=== PATIENT | female | born 1995 | race Caucasian/White ===

== ENCOUNTER 2024-12-16 10:10 | Emergency (ER) | payer BC, SELFPAY ==
[2024-12-16 10:10] VITALS: BP 122/76; BMI 27.2
[2024-12-16 10:11] VITALS: BP 122/76
[2024-12-16] MEDS: PEPCID 20 MG IV (10:23)
[2024-12-16] MEDS: DECADRON 4 MG IV (10:23)
[2024-12-16] MEDS: NSS 1000 IV (10:23)
[2024-12-16 10:56] LABS: ALT (SGPT) 26 U/L (0-35); AST (SGOT) 20 U/L (14-36); Albumin 4.6 g/dl (3.5-5.0); Alkaline Phosphatase 93 U/L (38-126); Blood Urea Nitrogen 13 mg/dl (7-17); Calcium 9.5 mg/dl (8.4-10.2); Carbon Dioxide 23 mmol/L (22-30); Chloride 104 mmol/L (98-107); Estimated Creatinine Clearance 107 ml/min; Glucose 143 mg/dl (70-99); Potassium 3.2 mmol/L (3.5-5.1); Sodium 138 mmol/L (135-145); Total Protein 7.0 g/dl (6.3-8.2); eGFR > 60.00
--- NOTE | 2024-12-16 11:04 | ED.GENMED ---
History of Present Illness
General
Chief Complaint: Allergic Reaction
Source: patient
Exam Limitations: none
Time Seen by Provider: 12/16/24 10:14
Nursing documentation reviewed up to this point in time: agreed with
History of Present Illness
History of Present Illness:
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 She noted that her symptoms commenced with intense
itchiness on her wrists, which progressed to include raised hives across her legs and around her eyes and upper lip. The patient experienced throat tightening, significant discomfort and was concerned about potential loss of consciousness as she was
alone at home, prompting her to call emergency services. The initial symptoms of itching and nausea, throat tightness, EMS administered epinephrine and diphenhydramine 50 mg from EMS. At evaluation, she reports feeling jittery from the epinephrine
and continuing itchiness, but her breathing and throat tightness has improved.
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
Past History
Past History
ED Past Medical History: Asthma and Psychiatric (depression w/ suicide attempt 10/27)
ED Past Surgical History: None
Social History
Tobacco: Smoker
Alcohol: None
Drug: None
Personal: Single
Living: with family
Family History
Family History: Other (n/c)
Review of Systems
Review of Systems
Allergies reviewed?: Yes
All Other Systems: ROS reviewed and negative except as documented in HPI and ROS
Constitutional: Denies fever
EENT: Denies sore throat or mouth swelling
Respiratory: Denies trouble breathing
Cardiac: Denies chest pain
ABD/GI: Denies abdominal pain, nausea, vomiting or diarrhea
Musculoskeletal: Reports no symptoms
Skin: Reports itching (Much improved, welts are gone)
Neurological: Reports no symptoms
Phy Exam
Physical Exam
Physical Exam:
GENERAL: No acute distress. A&Ox3.
CONSTITUTIONAL: Afebrile.
EYES: clear, conjunctivae normal
ENMT: moist mucus membranes, Pharynx nl
RESPIRATORY: Regular respirations, nonlabored, lungs clear.
CARDIOVASCULAR: Regular rate and rhythm, no murmurs, no rubs.
GI: Soft, nontender, normal BS
MUSCULOSKELETAL: Moves with ease. Well perfused.
SKIN: Warm, dry, pink, no rash.
PSYCH: Normal mood and affect. Well kept, interactive and appropriate
NEUROLOGIC: Awake, alert and oriented. No focal neurological deficits
Course
Orders/Labs/Results
Orders:
Orders
12/16/24 10:12
EKG [Electrocardiogram (*1)] Urgent
Reason for Study: Shortness of Breath
EKG- Treatment ONCE
CR Chest - 2 Views Urgent
Comment:
Reason For Exam: shortness of breath
12/16/24 10:19
0.9% Sodium Chloride 1000 ml [Nss] 1,000 ml IV BOLUS
Dexamethasone Sod Phosphate [Decadron] 4 mg IV NOW STA
Famotidine [Pepcid] 20 mg IV NOW STA
12/16/24 10:20
Complete Blood Count/With Diff Urgent
Comprehensive Metabolic Panel Urgent
12/16/24 11:23
Cetirizine HCl [Zyrtec] 10 mg PO NOW STA
Abnormal Lab Results
12/16/24
10:20
WBC 16.3 H 10^3/uL
(4.8-10.8)
MCH 31.8 H pg
(27.0-31.0)
Plt Count 401 H 10^3/uL
(130-400)
Abs Immat Gran (auto) 0.1 H 10^3/uL
(0-0.05)
Absolute Neuts (auto) 8.0 H 10^3/uL
(1.4-6.5)
Absolute Lymphs (auto) 7.1 H 10^3/uL
(1.2-3.4)
Absolute Monos (auto) 1.0 H 10^3/uL
(0.1-0.6)
Potassium 3.2 L mmol/L
(3.5-5.1)
Glucose 143 H mg/dl
(70-99)
12/16/24 10:20
12/16/24 10:20
Vital Signs
Initial and Last Documented VS:
Initial Vital Signs
Temp Pulse Resp BP Pulse Ox
98.5 F 105 16 122/76 100
12/16/24 10:10 12/16/24 10:10 12/16/24 10:10 12/16/24 10:10 12/16/24 10:10
Last Documented Vital Signs
Temp Pulse Resp BP Pulse Ox
97.5 F 82 20 121/85 100
12/16/24 14:07 12/16/24 14:07 12/16/24 14:07 12/16/24 14:07 12/16/24 14:07
MDM/Problems Addressed
Differential Diagnosis Includes:
Anaphylaxis, allergic reaction, environmental allergen exposure
MDM/Problems Addressed:
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 She noted that her symptoms commenced with intense
itchiness on her wrists, which progressed to include raised hives across her legs and around her eyes and upper lip. The patient experienced throat tightening, significant discomfort and was concerned about potential loss of consciousness as she was
alone at home, prompting her to call emergency services. The initial symptoms of itching and nausea, throat tightness, EMS administered epinephrine and diphenhydramine 50 mg from EMS. At evaluation, she reports feeling jittery from the epinephrine
and continuing itchiness, but her breathing and throat tightness has improved.
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
Afebrile, NAD
EKG NSR
Problem:
Acute:
- Allergic reaction with anaphylaxis features (throat constriction, systemic hives).
CBC: WBC 16.3
CMP: No clinically significant abnormality
Chest x-ray NAD
11:20 a.m.
In to re evaluate. Pt still feeling generally itchy, rash is gone, throat symptoms gone.
Plan: Give a dose of Zyrtec
1300
Patient feeling much better is comfortable going home.
Pt ambulated out with normal gait at discharge
*Pulse Oximetry
SaO2: 100
Oxygen Mode of Delivery: Room air
Patient hypoxic: no
*Critical Care Note
Total Time (30-74mins, 75-104mins- exclusive of procedures): Not Applicable
ED Attending Note
-
Portions of this chart may have been created with voice recognition software.� Occasional wrong word or��sound alike� substitutions may have occurred due to the inherent limitations of voice recognition software.
Discharge Plan
Departure
Patient Disposition: Home (Routine Discharge)
Date of Disposition: 12/16/24
Time of Disposition: 13:19
Patient with high blood pressure during this ER visit?: No
Condition: Good
Discharge Problem:
Allergic reaction
Instructions: Allergic reaction - ED discharge instructions
Prescriptions:
New
prednisone 20 mg tablet
40 mg PO DAILY Qty: 6 0RF
epinephrine [EpiPen 2-Chidi] 0.3 mg/0.3 mL auto-injector
0.3 mg IM Q5-15M PRN (Reason: anaphylaxis) Qty: 2 0RF
No Action
cetirizine 10 MG tablet
10 mg PO DAILY
Referrals:
NONE,* [Family Provider, Internal Medicine]
Stand Alone Forms: Return to Work
Activity Restrictions/Additional Instructions:
As we discussed, I sent a prescription to your pharmacy for 2 EpiPen's also for prednisone.
Start the prednisone tomorrow and take 40 mg a day for the next 3 days.
You may continue Benadryl as needed for itching or rash
Interventions
Interventions:
*Risk Screen - Suicide Last Done: 12/16/24 10:10
*General Assessment Last Done: 12/16/24 10:10
*Neglect/Abuse Screening Last Done: 12/16/24 10:10
*ED- Fall Risk Assessment Last Done: 12/16/24 10:10
*ED COVID-19 Vaccine History Last Done: 12/16/24 10:10
*Nursing Disposition Last Done: 12/16/24 14:07
ED- Cardiac Assessment Last Done: 12/16/24 10:10
ED- Pulmonary Assessment Last Done: 12/16/24 10:10
ED-Skin Assessment Last Done: 12/16/24 10:10
Discharge Date and Time
Discharge Date/Time: 12/16/24 14:08
Print Language: ANGOLAN
[2024-12-16 11:05] LABS: Hematocrit 41.4 % (37.0-47.0); Hemoglobin 14.9 g/dL (12.0-16.0); Mean Corp Hgb Conc. 36.0 g/dL (33.0-37.0); Mean Corpuscular Volume 88.3 fL (81.0-99.0); Platelet Count 401 10^3/uL (130-400); Red Cell Dist. Width 12.0 % (11.5-14.5)
[2024-12-16 12:03] LABS: Nucleated Red Blood Cells % 0 %
[2024-12-16 14:07] VITALS: BP 121/85
== END 2024-12-16 14:08 | disposition home or self-care (01) ==
LOC: EMR 10:10
PROVIDERS: Emergency Medicine; EMERGENCY PHYSICIAN Emergency Medicine
DX: T78.40XA Allergy, unspecified, initial encounter (principal); Y92.9 Unspecified place or not applicable; J45.909 Unspecified asthma, uncomplicated; F17.200 Nicotine dependence, unspecified, uncomplicated; Z91.51 Personal history of suicidal behavior
CPT/HCPCS: 99283; 96374; 96375; 96361; 71046; 80053; 85025; 93005